=== PATIENT | male | born 1945 ===

== ENCOUNTER 2025-02-11 07:04 | Day surgery (SDC) | payer OTHER ==
[2025-02-11] MEDS ORDERED: DIPHENHYDRAMINE HCL 50 MG/ML VIAL 1ML IV ONE (09:15)
[2025-02-11] MEDS ORDERED: MIDAZOLAM HCL 2 MG/2 ML VIAL IV ONE (09:15)
[2025-02-11] MEDS ORDERED: fentaNYL CITRATE 50 MCG/ML AMPUL IV PUSH ONE (09:15)
== END 2025-02-11 11:00 | disposition home or self-care (01) ==
LOC: AMB-ENDOS 07:04
PROVIDERS: ATTEND Internal Medicine
DX: D12.4 Benign neoplasm of descending colon (principal); K62.5 Hemorrhage of anus and rectum; K62.7 Radiation proctitis; K57.30 Diverticulosis of large intestine without perforation or abscess without bleeding; K63.5 Polyp of colon